=== PATIENT | female | born 1975 | race American Indian/Alaskan Native ===

== ENCOUNTER 2018-06-04 19:00 | Emergency (ER) | payer BC ==
[2018-06-04 19:09] VITALS: RESP 16; O2SAT 100
--- NOTE | 2018-06-04 20:08 | ED PDOC ---
HPI: Chest Pain Time Seen by Provider: 06/04/18 19:38 Chief Complaint (Nursing): Chest Pain History Per: Patient History/Exam Limitations: no limitations Onset/Duration Of Symptoms: Hrs Current Symptoms Are (Timing): Still Present Additional Complaint(s): No PMHx presenting with chest pain. Patient states it started in the morning on Saturday while at rest, states its worse when changing positions, walking, bending, lying down. States today she also had back pain. Describes as "pain", denies: tearing/ripping sensation, shortness of breath, sweats, chills, or any other symptoms. Took no meds prior to arrival. Reports no family history of ME, heart disease or any other medical problems. PMD: None Past Medical History Reviewed: Historical Data, Nursing Documentation, Vital Signs Vital Signs: Last Vital Signs Temp 97.8 F 06/04/18 19:06 Pulse 71 06/04/18 19:06 Resp 16 06/04/18 19:06 BP 113/71 06/04/18 19:06 Pulse Ox 100 06/04/18 19:06 - Family History Family History: States: No Known Family Hx Denies: ME, CAD, Diabetes, Hypertension - Home Medications Home Medications: Ambulatory Orders Medication Instructions Recorded Cyclobenzaprine [Cyclobenzaprine 10 mg PO BID #15 tab 06/04/18 HCl] Ibuprofen [Motrin Tab] 600 mg PO Q6 #30 tab 06/04/18 Lidocaine 1 each TP DAILY #10 adh..patch 06/04/18 - Allergies Allergies/Adverse Reactions: Allergies Allergy/AdvReac Type Severity Reaction Status Date / Time No Known Allergies Allergy Verified 06/04/18 20:05 STEFANI Risk Score for UA/NSTEMI - STEFANI Risk Score Age > 64: NO 3 or more CAD Risk Factors: NO Known CAD (Stenosis greater than 50%): NO Aspirin use in past 7 days: NO Severe Angina: NO EKG ST changes greater than 0.5mm: NO Positive Cardiac Marker: NO STEFANI Score: 0 Risk %: 5% Curb-65 Severity Score - CURB-65 Severity Score Confusion: No Bun >19mg/dl (>7mmol/L): No Respiratory Rate greater than/equal to 30: No Systolic BP <90 or Diastolic BP less than/equal 60mmHg: No Age >64: No Curb-65 Score: 0 Percentage 30-day mortality: 0.6% Wells Criteria for PE - Wells Criteria for Pulmonary Embolism Clinical Signs and Symptoms of DVT: No P.E is #1 Diagnosis, or Equally Likely: No Heart Rate >100: No Immobilization at least 3 days;Surgery previous 4 weeks: No Previous, objectively diagnosed PE or DVT: No Hemoptysis: No Malignancy w/treatment within 6 months, or palliative: No Total Score: 0 Review of Systems ROS Statement: Except As Marked, All Systems Reviewed And Found Negative Cardiovascular: Positive for: Chest Pain Musculoskeletal: Positive for: Back Pain Physical Exam - Reviewed Nursing Documentation Reviewed: Yes Vital Signs Reviewed: Yes - Physical Exam Appears: Positive for: Well, Non-toxic, No Acute Distress Head Exam: Positive for: ATRAUMATIC, NORMAL INSPECTION, NORMOCEPHALIC Skin: Positive for: Normal Color, Warm, DRY Eye Exam: Positive for: EOMI, Normal appearance, PERRL ENT: Positive for: Normal ENT Inspection Neck: Positive for: Normal, Painless ROM Cardiovascular/Chest: Positive for: Regular Rate, Rhythm Respiratory: Positive for: CNT, Normal Breath Sounds Gastrointestinal/Abdominal: Positive for: Normal Exam, Soft. Negative for: Tenderness Back: Positive for: Normal Inspection Extremity: Positive for: Normal ROM Neurologic/Psych: Positive for: Alert, lift truck mechanic II-XII, Oriented. Negative for: Motor/Sensory Deficits - Laboratory Results Result Diagrams: 06/04/18 20:19 06/04/18 20:19 - ECG ECG: Positive for: Interpreted By Me ECG Rhythm: Positive for: Normal QRS, Normal ST Segment, Sinus Rhythm Rate: 66 O2 Sat by Pulse Oximetry: 100 Medical Decision Making Medical Decision MakinPM No PMHx presenting with chest pain, back pain --Very well appearing, normal vitals, walking around room --Symptoms very unlikely cardiac/pulmonary (ACS/ME/PTX/PE/Etc.) in etiology based on history and EKG --Given age/race, will check screening labs, CXR --Will re-eval after workup 930PM --All results negative --Patient very well appearing, reports improvement in symptoms, comfortable, sitting on stretcher --Advised patient to followup with primary care, [facility] referral given Disposition - Clinical Impression Clinical Impression: Atypical chest pain - Patient ED Disposition Is Patient to be Admitted: No - Disposition Referrals: [facility] [Outside] Disposition: Routine/Home Disposition Time: 21:30 Condition: IMPROVED Prescriptions: Cyclobenzaprine [Cyclobenzaprine HCl] 10 mg PO BID #15 tab Ibuprofen [Motrin Tab] 600 mg PO Q6 #30 tab Lidocaine 1 each TP DAILY #10 adh..patch Instructions: Chest Pain That Is Not Caused by the Heart (DC) Forms: [employer] ([employer])
[2018-06-04 20:11] VITALS: PULSE 66
[2018-06-04 20:24] LABS: HEMOGLOBIN 12.9 g/dL (12.0-16.0); MEAN CELL VOLUME 87.6 fl (81.0-99.0); MEAN CORPUSCULAR HEMOGLOBIN 28.3 pg (27.0-31.0); MEAN CORPUSCULAR HGB CONC 32.3 g/dL (33.0-37.0); RBC 4.57 Mil/uL (3.80-5.20); RED CELL DISTRIBUTION WIDTH 13.9 % (11.5-14.5); WHITE BLOOD COUNT 5.7 K/uL (4.8-10.8)
[2018-06-04 20:37] LABS: BLOOD UREA NITROGEN 6 mg/dl (7-17); CALCIUM 9.6 mg/dL (8.4-10.2); GFR NON-AFRICAN AMERICAN > 60
[2018-06-04 21:56] VITALS: BP 128/74; TEMP 98.2
--- NOTE | 2018-06-05 09:32 | CARD ---
APPROVED REPORT Date of service: 06/04/2018 EKG Measurement Heart [id number] <Conclusion> Normal sinus rhythm Normal ECG
--- NOTE | 2018-06-05 12:29 | RAD ---
Date of service: 06/04/2018 HISTORY: cp COMPARISON: No prior. TECHNIQUE: Chest PA and lateral FINDINGS: LUNGS: No active pulmonary disease. PLEURA: No significant pleural effusion identified. No pneumothorax apparent. CARDIOVASCULAR: No aortic atherosclerotic calcification present. Normal cardiac size. No pulmonary vascular congestion. OSSEOUS STRUCTURES: No significant abnormalities. VISUALIZED UPPER ABDOMEN: Normal. OTHER FINDINGS: None. IMPRESSION: No active disease. Concordant results with the preliminary interpretation rendered by the emergency department physician procedure.
== END 2018-06-04 21:10 | disposition home or self-care (01) ==
LOC: H.ER 19:00
DX: R07.89 Other chest pain (principal)